=== PATIENT | male | born 1975 | race Two or more races ===

== ENCOUNTER 2020-11-02 01:31 | Emergency (ER) | payer OTHER ==
[~2020-11-02] VITALS: Ht 188 cm; Wt 107.0 kg
[2020-11-02] MEDS ORDERED: INDOMETHACIN50 MG PO (02:57)
== END 2020-11-02 03:00 ==
LOC: ER 01:31
DX: M10.062 Idiopathic gout, left knee (principal)

== ENCOUNTER 2021-04-27 03:38 | Emergency (ER) | payer OTHER ==
[~2021-04-27] VITALS: Ht 185.4 cm; Wt 108.9 kg
[~2021-04-27 03:38] MED LIST: INDOMETHACIN50 MG PO
[2021-04-27] MEDS ORDERED: MEDROLPACK PO (05:42)
== END 2021-04-27 05:49 | disposition home or self-care (01) ==
LOC: ER 03:38
DX: M10.062 Idiopathic gout, left knee (principal); M25.562 Pain in left knee

== ENCOUNTER 2021-04-28 01:29 | Emergency (ER) | payer OTHER ==
[~2021-04-28] VITALS: Ht 185.4 cm; Wt 108.9 kg
[~2021-04-28 01:29] MED LIST changes: +MEDROLPACK PO
== END 2021-04-28 02:02 | disposition home or self-care (01) ==
LOC: ER 01:29
DX: M10.071 Idiopathic gout, right ankle and foot (principal); M10.062 Idiopathic gout, left knee; M79.674 Pain in right toe(s); M25.562 Pain in left knee

== ENCOUNTER 2021-06-06 01:40 | Emergency (ER) | payer OTHER ==
[~2021-06-06] VITALS: Ht 182.9 cm; Wt 99.8 kg
[2021-06-06] MEDS ORDERED: KETO10TA2 PO (06:57)
== END 2021-06-06 08:45 ==
LOC: ER 01:40
DX: M25.562 Pain in left knee (principal)

== ENCOUNTER 2023-12-26 19:54 | Emergency (ER) | payer OTHER ==
[~2023-12-26] VITALS: Ht 182.9 cm; Wt 102.1 kg
[~2023-12-26 19:54] MED LIST changes: +KETO10TA2 PO
[2023-12-26] MEDS ORDERED: KETOROLAC TROMETHAMINE 30 MG VIAL IM STA (20:56)
[2023-12-26 21:20] LABS: HEMATOCRIT 44.2 % (39.0-48.0); HEMOGLOBIN 15.1 g/dL (13-16.00); MEAN CELL VOLUME 86.9 fL (80.0-100.00); MEAN CORPUSCULAR HEMOGLOBIN 29.6 pg (27.00-32.0); MEAN CORPUSCULAR HGB CONC 34.1 g/dl (32.0-36.0); PLATELET COUNT 273 K/uL (150-450); RED BLOOD COUNT 5.09 M/uL (4.00-6.00); RED CELL DISTRIBUTION WIDTH 14.3 % (11.5-14.5)
[2023-12-26 21:34] LABS: CREATININE SERUM 1.37 mg/dL (0.70-1.30); POTASSIUM 3.96 mEq/L (3.5-5.1)
== END 2023-12-26 22:32 | disposition home or self-care (01) ==
LOC: ER 19:56
PROVIDERS: General Practice
DX: M25.562 Pain in left knee (principal); M25.462 Effusion, left knee; M10.9 Gout, unspecified